=== PATIENT | male | born 1980 | race Caucasian/White ===

== ENCOUNTER 2016-06-16 17:57 | Emergency (ER) | payer OTHER ==
[~2016-06-16] VITALS: Ht 182.9 cm; Wt 90.7 kg
[2016-06-16 18:00] VITALS: BP 128/84
[2016-06-16] MEDS ORDERED: IBUPROFEN 600 MG TABLET PO ONE ×2 (18:13→18:30)
== END 2016-06-16 18:49 | disposition home or self-care (01) ==
LOC: ER 17:59
DX: S93.402A Sprain of unspecified ligament of left ankle, initial encounter (principal); X50.1XXA Overexertion from prolonged static or awkward postures, initial encounter; Y93.89 Activity, other specified; Y92.89 Other specified places as the place of occurrence of the external cause; Y99.8 Other external cause status
CPT/HCPCS: 73610; 99284; A4606; Z7610